=== PATIENT | male | born 1975 | race African-American/Black ===

== ENCOUNTER → 2017-11-15 20:03 | Outpatient (CLI) | payer BC, MEDICARE | END | disposition home or self-care (01) | LOC: D.SLEEP 10-25 20:30 | DX: G47.33 Obstructive sleep apnea (adult) (pediatric) (principal) ==

== ENCOUNTER → 2020-12-08 14:24 | Outpatient (CLI) | payer MEDICARE | END | disposition home or self-care (01) | LOC: D.LAB 14:24 | PROVIDERS: ATTEND Internal Medicine Pulmonary Disease | DX: R06.00 Dyspnea, unspecified (principal) ==

== ENCOUNTER → 2020-12-12 07:49 | Outpatient (CLI) | payer MEDICARE | END | disposition home or self-care (01) | LOC: D.RT 07:49 | PROVIDERS: ATTEND Internal Medicine Pulmonary Disease | DX: R06.00 Dyspnea, unspecified (principal) ==